=== PATIENT | male | born 1930 | race Caucasian/White ===

== ENCOUNTER 2016-07-10 11:36 | Emergency (ER) | payer MEDICARE, BC ==
[~2016-07-10] VITALS: Ht 170.2 cm; Wt 5.0 kg
[~2016-07-10 11:36] MED LIST: ALPR.25 PO; ASPI1TAB69 PO; FERR325T PO; IV IG; MEST60TA PO; PRED10 PO; RAMI2.5C PO; SYNT112T PO; b12
[2016-07-10 11:45] VITALS: BP 147/75; PULSE 75; RESP 18; TEMP 98.4; O2SAT 95
--- NOTE | 2016-07-10 12:34 | PD ---
HPI Chief Complaint: Cold / Flu Symptoms Time Seen by Provider: 12:00 Travel History International Travel<30 days: No Contact w/Intl Traveler<30days: No Traveled to known affect area: No History of Present Illness HPI Patient is an 85-year-old male who presents emergency department for evaluation of a cough. Patient states cough is an ongoing for approximately 3 days, it is accompanied by nasal congestion, runny nose. He denies any fevers, chills, nausea, vomiting, chest pain, shortness of breath, weakness. Patient reports a history of myasthenia gravis and is concerned that he could have a lung infection. He denies any other complaints at this time. PFSH Past Medical History Hx Anticoagulant Therapy: Yes (81 MG. ASA DAILY) Arthritis: Yes Asthma: No Autoimmune Disease: Yes (myasthenia gravis) Blood Disorders: No Anxiety: Yes Heart Rhythm Problems: No Cancer: No Cardiac Catheterization: Yes High Cholesterol: Yes Chest Pain: Yes Congestive Heart Failure: No COPD: No Cerebrovascular Accident: No Coronary Artery Disease: Yes Diabetes: No Diminished Hearing: No GERD: Yes Genitourinary: Yes Headaches: Yes Hepatitis: No Hiatal Hernia: No Hypertension: Yes Immune Disorder: No Implanted Vascular Access Dvce: Yes Medical other: No Musculoskeletal: Yes Neurologic: Yes (MYASTHENIA GRAVIS ) Psychiatric: Yes Reproductive: No Respiratory: Yes (MYASTHENIA COMPROMISED) Migraines: No Myocardial Infarction: Yes Seizures: No Sleep Apnea: No Thyroid Disease: Yes Past Surgical History Abdominal Surgery: Yes (bilat inguinal hernia repair, APPY) Appendectomy: Yes Body Medical Devices: cardiac stent Cardiac Surgery: Yes (STENT(1)) Cholecystectomy: Yes Coronary Stent: Yes (2000 X1 ) Ear Surgery: No Endocrine Surgery: Yes (PARTIAL THYROIDECTOMY) Eye Surgery: No Genitourinary Surgery: No Gynecologic Surgery: No Joint Replacement: Yes (LEFT KNEE, LEFT SHOULDER) Neurologic Surgery: No Oral Surgery: Yes (T & A, TEETH IMPL.) Thoracic Surgery: No Tonsillectomy: Yes Other Surgery: Yes (partial thyroidectomy) Social History Alcohol Use: Yes (wine daily) Tobacco Use: No (QUIT 55 Y5S AGO. SMOKED CIGS) Substance Use: No Allergies-Medications (Allergen,Severity, Reaction): Coded Allergies: Penicillin (Verified Allergy, Severe, Swelling, 07/10/16) Reported Meds & Prescriptions Reported Meds & Active Scripts Active Reported Ferrous Sulfate 325 Mg Tab 325 Mg PO DAILY [Iv Ig] [b12] Ramipril 2.5 Mg Cap 2.5 Mg PO BID Prednisone 10 Mg Tab 10 Mg PO DAILY Xanax (Alprazolam) 0.25 Mg Tab 0.25 Mg PO BID Mestinon (Pyridostigmine [place]) 60 Mg Tab 90 Mg PO DAILY Aspirin 81 Mg Tabdr 81 Mg PO DAILY Synthroid (Levothyroxine Sodium) 112 Mcg Tab 112 Mcg PO DAILY Review of Systems Except as stated in HPI: all other systems reviewed are Neg HENT: Positive: Congestion Respiratory: Positive: Cough Physical Exam Narrative GENERAL: Well-developed, well-nourished, alert, well-appearing elderly white gentleman. Resting comfortably in no acute distress. at bedside. SKIN: Warm and dry. HEAD: Atraumatic. Normocephalic. EYES: Pupils equal and round. No scleral icterus. No injection or drainage. ENT: No nasal bleeding or discharge. Mucous membranes pink and moist. NECK: Trachea midline. No JVD. CARDIOVASCULAR: Regular rate and rhythm. No murmur appreciated. RESPIRATORY: No accessory muscle use. Clear to auscultation. Breath sounds equal bilaterally. GASTROINTESTINAL: Abdomen soft, non-tender, nondistended. Hepatic and splenic margins not palpable. MUSCULOSKELETAL: No obvious deformities. No clubbing. No cyanosis. No edema. NEUROLOGICAL: Awake and alert. No obvious cranial nerve deficits. Motor grossly within normal limits. Normal speech. PSYCHIATRIC: Appropriate mood and affect; insight and judgment normal. Data Data Last Documented VS Vital Signs Date Time Temp Pulse Resp B/P Pulse Ox O2 Delivery O2 Flow Rate FiO2 07/10/16 11:45 98.4 75 18 147/75 95 Orders Chest, Pa & Lat (07/10/16 ) [facility] Medical Decision Making Medical Screen Exam Complete: Yes Emergency Medical Condition: Yes Interpretation(s) Last Impressions Chest X-Ray 07/10/16 0000 Signed Impressions: Service Date/Time: Sunday, July 10, 2016 13:00 - CONCLUSION: No acute finding is identified. Noe Sparks MD Vital Signs Date Time Temp Pulse Resp B/P Pulse Ox O2 Delivery O2 Flow Rate FiO2 07/10/16 11:45 98.4 75 18 147/75 95 Differential Diagnosis Viral syndrome versus upper respiratory infection versus bronchitis versus pneumonia versus other Narrative Course Patient's a 85-year-old male who presented to emergency for evaluation of a cough. Cough is accompanied by nasal congestion. Symptoms have been ongoing for approximately 3 days. Patient is a history of myasthenia gravis and was concerned about a lung infection. Chest x-ray shows no acute disease. Patient is well oxygenated on room air, he is afebrile and his vital signs are stable. Patient was encouraged to continue with symptomatic management. He is encouraged follow-up with his primary doctor or return to emergency department for any new or worsening symptoms. Please see discharge instructions for further orders. Patient is stable for discharge. Diagnosis Primary Impression: Head cold Referrals: Primary Care Physician Patient Instructions: Cold Symptoms (ED), General Instructions Additional Instructions: Follow-up with your primary doctor Return to emergency department for any new or worsening symptoms trial [id number] nasal saline wash, Nasonex or Flonase use as directed Med/Other Pt SpecificInfo: No Change to Meds Disposition: 01 DISCHARGE HOME Condition: Stable Valentine Mae Jul 10, 2016 12:34
--- NOTE | 2016-07-10 13:25 | RADHPO ---
EXAM DATE/TIME: 07/10/2016 13:00 [facility] COMPARISON: CHEST PA & LAT, February 16, 2014, 17:28. INDICATIONS : Short of breath, cough fever MEDICAL HISTORY : None. SURGICAL HISTORY : None. ENCOUNTER: Initial ACUITY: 2 days PAIN SCORE: 2/10 LOCATION: Bilateral chest FINDINGS: Frontal and lateral views of the chest demonstrate a normal-sized cardiac silhouette with tortuous de scending thoracic aorta. There is chronic elevation of the right hemidiaphragm with atelectasis at th e right base. No effusion, consolidation, or pneumothorax is identified. CONCLUSION: No acute finding is identified. Noe Sparks MD on July 10, 2016 at 13:23 Board Certified Radiologist. This report was verified electronically.
[2016-11-15] MEDS ORDERED: CALC600T64 PO (14:09)
[2016-11-15] MEDS ORDERED: TYLE325T PO (14:09)
[2016-11-15] MEDS ORDERED: DIPH25CA PO (14:09)
[2016-11-15] MEDS ORDERED: VITA100018 PO (14:09)
[2016-11-15] MEDS ORDERED: MEST60TA PO (14:09)
[2016-11-15] MEDS ORDERED: [UNRECOGNIZED DRUG - CODE] IV (14:09)
[2016-11-15] MEDS ORDERED: RAMI2.5C PO (14:09)
[2016-12-06] MEDS ORDERED: ASPI81CH CHEW (11:02)
[2016-12-06] MEDS ORDERED: FERR200T PO (11:06)
[2016-12-06] MEDS ORDERED: CYAN1000P SQ (11:23)
== END 2016-07-10 13:56 | disposition home or self-care (01) ==
LOC: PHEFT 11:36
DX: J00 Acute nasopharyngitis [common cold] (principal); G70.00 Myasthenia gravis without (acute) exacerbation; E78.00 Pure hypercholesterolemia, unspecified; I25.10 Atherosclerotic heart disease of native coronary artery without angina pectoris; I10 Essential (primary) hypertension; E07.9 Disorder of thyroid, unspecified; Z79.82 Long term (current) use of aspirin; Z87.39 Personal history of other diseases of the musculoskeletal system and connective tissue; Z86.59 Personal history of other mental and behavioral disorders; Z87.19 Personal history of other diseases of the digestive system; Z87.448 Personal history of other diseases of urinary system; Z87.891 Personal history of nicotine dependence
CPT/HCPCS: 71020; 99283

== ENCOUNTER → 2016-08-25 | Outpatient (CLI) | payer MEDICARE, BC ==
[~2016-08-25] MED LIST changes: +ASPI81CH CHEW; +CALC600T64 PO; +CYAN1000P SQ; +DIPH25CA PO; +FERR200T PO; +TYLE325T PO; +VITA100018 PO; +[UNRECOGNIZED DRUG - CODE] IV
[2016-08-25 10:01] LABS: FREE T4 1.21 NG/DL (0.76-1.46); POTASSIUM 4.8 MEQ/L (3.5-5.1)
== END ==
LOC: PLAB 07:39
PROVIDERS: ATTEND Family Medicine
DX: E03.9 Hypothyroidism, unspecified (principal); I12.9 Hypertensive chronic kidney disease with stage 1 through stage 4 chronic kidney disease, or unspecified chronic kidney disease; N18.2 Chronic kidney disease, stage 2 (mild)
CPT/HCPCS: 36415; 80048; 84439; 84443

== ENCOUNTER → 2017-02-23 | Outpatient (CLI) | payer MEDICARE, BC ==
[~2017-02-23] MED LIST changes: -ASPI1TAB69 PO; -FERR325T PO; -IV IG; -b12
[2017-02-23 13:30] LABS: AUTOMATED NEUTROPHIL # 3.1 TH/MM3 (1.8-7.7); BASOPHIL % 0.7 % (0.0-2.0); EOSINOPHIL # 0.1 TH/MM3 (0-0.4); HEMATOCRIT 38.5 % (39.0-51.0); HEMO FLAGS DIFF FINAL; LYMPH % 29.4 % (9.0-44.0); LYMPHOCYTE # 1.6 TH/MM3 (1.0-4.8); MEAN CELL VOLUME 96.9 FL (80.0-100.0); MEAN CORPUSCULAR HEMOGLOBIN 32.4 PG (27.0-34.0); MEAN CORPUSCULAR HGB CONC 33.4 % (32.0-36.0); MONO % 10.4 % (0.0-8.0); NEUT % 57.5 % (16.0-70.0); PLATELET COUNT 145 TH/MM3 (150-450); RED BLOOD COUNT 3.97 MIL/MM3 (4.50-5.90); RED CELL DISTRIBUTION WIDTH 14.9 % (11.6-17.2); WHITE BLOOD COUNT 5.3 TH/MM3 (4.0-11.0)
[2017-02-23 13:45] LABS: ALT (GPT) 31 U/L (12-78); ANION GAP 4 MEQ/L (5-15); AST (GOT) 30 U/L (15-37); BICARBONATE 29.7 MEQ/L (21.0-32.0); BLOOD UREA NITROGEN 16 MG/DL (7-18); CHLORIDE 101 MEQ/L (98-107); GLOMERULAR FILTRATION RATE 80 ML/MIN (>89); GLUCOSE,FASTING 99 MG/DL (74-99); POTASSIUM 3.9 MEQ/L (3.5-5.1); SODIUM (NA) 135 MEQ/L (136-145)
[2017-02-23 14:12] LABS: ALKALINE PHOSPHATASE 87 U/L (45-117); FREE T4 1.17 NG/DL (0.76-1.46); TOTAL BILIRUBIN ADULT 0.4 MG/DL (0.2-1.0)
== END ==
LOC: PLAB 08:56
PROVIDERS: ATTEND Family Medicine
DX: E03.9 Hypothyroidism, unspecified (principal); I12.9 Hypertensive chronic kidney disease with stage 1 through stage 4 chronic kidney disease, or unspecified chronic kidney disease; N18.2 Chronic kidney disease, stage 2 (mild); E53.8 Deficiency of other specified B group vitamins
CPT/HCPCS: 36415; 80053; 82607; 84439; 84443; 85025

== ENCOUNTER → 2017-05-25 | Outpatient (CLI) | payer MEDICARE, BC ==
[~2017-05-25] MED LIST changes: +ASPI-516 CHEW; -ASPI81CH CHEW
[2017-05-25 11:58] LABS: BICARBONATE 29.9 MEQ/L (21.0-32.0); POTASSIUM 4.5 MEQ/L (3.5-5.1)
[2017-05-25 12:01] LABS: AUTOMATED NEUTROPHIL # 3.1 TH/MM3 (1.8-7.7); BASOPHIL % 0.6 % (0.0-2.0); EOSINOPHIL # 0.1 TH/MM3 (0-0.4); EOSINOPHIL % 1.4 % (0.0-4.0); HDL CHOLESTEROL 78.6 MG/DL (40.0-60.0); HEMO FLAGS DIFF FINAL; LYMPH % 25.1 % (9.0-44.0); LYMPHOCYTE # 1.2 TH/MM3 (1.0-4.8); MEAN CELL VOLUME 95.4 FL (80.0-100.0); MEAN CORPUSCULAR HEMOGLOBIN 32.7 PG (27.0-34.0); MEAN CORPUSCULAR HGB CONC 34.3 % (32.0-36.0); MONO % 8.9 % (0.0-8.0); PLATELET COUNT 148 TH/MM3 (150-450); RED BLOOD COUNT 3.88 MIL/MM3 (4.50-5.90); RED CELL DISTRIBUTION WIDTH 14.5 % (11.6-17.2); WHITE BLOOD COUNT 4.9 TH/MM3 (4.0-11.0)
[2017-05-25 12:25] LABS: FREE T4 1.05 NG/DL (0.76-1.46)
== END ==
LOC: PLAB 09:43
PROVIDERS: ATTEND Internal Medicine Interventional Cardiology
DX: E78.00 Pure hypercholesterolemia, unspecified (principal); I25.118 Atherosclerotic heart disease of native coronary artery with other forms of angina pectoris; I25.9 Chronic ischemic heart disease, unspecified; D64.9 Anemia, unspecified; I10 Essential (primary) hypertension; E03.9 Hypothyroidism, unspecified; E53.8 Deficiency of other specified B group vitamins
CPT/HCPCS: 36415; 80048; 80061; 82607; 82746; 84439; 84443; 84450; 84460; 85025

== ENCOUNTER 2017-06-29 15:35 | Emergency (ER) | payer MEDICARE, BC | END 2017-06-29 15:49 | disposition left against medical advice (07) | LOC: PHED 15:35 | DX: S01.81XA Laceration without foreign body of other part of head, initial encounter (principal); X58.XXXA Exposure to other specified factors, initial encounter | CPT/HCPCS: 99281 ==

== ENCOUNTER 2017-06-29 16:09 | Emergency (ER) | payer MEDICARE, BC, OTHER ==
[~2017-06-29] VITALS: Ht 170.2 cm; Wt 72.5 kg
[2017-06-29 16:10] VITALS: BP 154/74; PULSE 73; RESP 18; TEMP 98.8; O2SAT 95
--- NOTE | 2017-06-29 17:31 | RADRPT ---
EXAM DATE/TIME: 06/29/2017 17:21 [facility] COMPARISON: No previous studies available for comparison. INDICATIONS : Head pain due to fall. RADIATION DOSE: 34.25 CTDIvol (mGy) MEDICAL HISTORY : Hypertension. Myasthenia grauis. SURGICAL HISTORY : Partial thyroidectomy. ENCOUNTER: Initial ACUITY: 1 day PAIN SCALE: 6/10 LOCATION: Bilateral cranial TECHNIQUE: Multiple contiguous axial images were obtained of the head. Using automated exposure control and adj ustment of the mA and/or kV according to patient size, radiation dose was kept as low as reasonably a chievable to obtain optimal diagnostic quality images. DICOM format image data is available electro nically for review and comparison. FINDINGS: CEREBRUM: The ventricles are normal for age. No evidence of midline shift, mass lesion, hemorrhage or acute in farction. No extra-axial fluid collections are seen. POSTERIOR FOSSA: The cerebellum and brainstem are intact. The 4th ventricle is midline. The cerebellopontine angle i s unremarkable. EXTRACRANIAL: The visualized portion of the orbits is intact. SKULL: The calvaria is intact. No evidence of skull fracture. CONCLUSION: Negative noncontrast head CT Chano Reed MD on June 29, 2017 at 17:28 Board Certified Radiologist. This report was verified electronically.
--- NOTE | 2017-06-29 17:49 | RADRPT ---
EXAM DATE/TIME: 06/29/2017 17:21 [facility] COMPARISON: No previous studies available for comparison. INDICATIONS : Neck pain due to fall. RADIATION DOSE: 20.70 CTDIvol (mGy) MEDICAL HISTORY : Cardiovascular disease. Hypertension. Myasthenia gravis. SURGICAL HISTORY : Partial thyroidectomy. ENCOUNTER: Initial ACUITY: 1 day PAIN SCALE: 5/10 LOCATION: Bilateral neck region. TECHNIQUE: Volumetric scanning of the cervical spine was performed. Multiplanar reconstructions in the sagittal, coronal and oblique axial planes were performed. Using automated exposure control and adjustment o f the mA and/or kV according to patient size, radiation dose was kept as low as reasonably achievable to obtain optimal diagnostic quality images. DICOM format image data is available electronically f or review and comparison. FINDINGS: Vertebral body heights are maintained. Osseous structures are intact without evidence for acute bony fracture. Dens is intact. There is 3 mm anterolisthesis of C7 on T1. There is a normal C1-2 relations hip. Facets are normally aligned. There is no significant prevertebral soft tissue hematoma. 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 No significant cervical adenopathy or gross mass. The thyroid appears unremarkable. Visualized lung apices are clear without pneumothorax. CONCLUSION: 1. 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 2. 3 mm anterolisthesis of C7 on T1, likely degenerative in etiology. Flexion and extension views may be obtained if there is significant clinical concern regarding ligamentous instability. 3. No acute fracture. Miky Paez MD on June 29, 2017 at 17:40 Board Certified Radiologist. This report was verified electronically.
[2017-06-29] MEDS ORDERED: ACETAMINOPHEN 325 MG TAB PO ONE (18:15)
--- NOTE | 2017-06-29 18:18 | PD ---
HPI Chief Complaint: Fall Time Seen by Provider: 18:00 Travel History International Travel<30 days: No Contact w/Intl Traveler<30days: No Traveled to known affect area: No History of Present Illness HPI 86-year-old male with history of myasthenia gravis here with his for evaluation after mechanical trip and fall. The patient reports that around 3: 00 PM he tripped and fell in his garage, falling forward. He did not lose consciousness. He sustained a wound to his left forehead, left upper extremity , left hand, bilateral knees. applied a sterile nonadherent dressing to the wound to his left arm. Patient is complaining of a slight headache. He is denying any other symptoms. No neck or back pain. No upper or lower extremity pain. No paresthesias or motor deficits. No visual disturbances. He takes 81 mg of aspirin daily, no other antiplatelets or anticoagulants. CT of the head and neck were ordered and performed while the patient was waiting in triage. States that his last tetanus was 5 years ago. PFSH Past Medical History Hx Anticoagulant Therapy: Yes (81 MG. ASA DAILY) Arthritis: Yes Asthma: No Autoimmune Disease: Yes (myasthenia gravis) Blood Disorders: No Anxiety: Yes Heart Rhythm Problems: No Cancer: No Cardiac Catheterization: Yes Cardiovascular Problems: Yes High Cholesterol: Yes Chest Pain: Yes Congestive Heart Failure: No COPD: No Cerebrovascular Accident: No Coronary Artery Disease: Yes Diabetes: No Diminished Hearing: No Endocrine: Yes GERD: Yes Genitourinary: No Headaches: Yes Hepatitis: No Hiatal Hernia: No Hypertension: Yes Immune Disorder: No Implanted Vascular Access Dvce: Yes Musculoskeletal: Yes Neurologic: Yes (MYASTHENIA GRAVIS ) Psychiatric: Yes Reproductive: No Respiratory: Yes (MYASTHENIA COMPROMISED) Migraines: No Myocardial Infarction: Yes Seizures: No Sleep Apnea: No Thyroid Disease: Yes Past Surgical History Abdominal Surgery: Yes (bilat inguinal hernia repair, APPY) Appendectomy: Yes Body Medical Devices: cardiac stent Cardiac Surgery: Yes (STENT(1)) Cholecystectomy: Yes Coronary Stent: Yes (2000 X1 ) Ear Surgery: No Endocrine Surgery: Yes (PARTIAL THYROIDECTOMY) Eye Surgery: No Genitourinary Surgery: No Gynecologic Surgery: No Joint Replacement: Yes (LEFT KNEE, LEFT SHOULDER) Neurologic Surgery: No Oral Surgery: Yes (T & A, TEETH IMPL.) Thoracic Surgery: No Tonsillectomy: Yes Other Surgery: Yes (partial thyroidectomy) Social History Alcohol Use: Yes (wine daily) Tobacco Use: No (QUIT 55 Y5S AGO. SMOKED CIGS) Substance Use: No Allergies-Medications (Allergen,Severity, Reaction): Coded Allergies: penicillin G (Verified Allergy, Severe, Swelling, 06/16/17) Reported Meds & Prescriptions Reported Meds & Active Scripts Active Reported Cyanocobalamin Inj (Cyanocobalamin) 1,000 Mcg/Ml Inj 1,000 Mcg SQ [id number] Feosol (Ferrous Sulfate) 200 Mg Tab 325 Mg PO DAILY Aspirin 81 Mg Chew 81 Mg CHEW DAILY Vitamin D3 (Cholecalciferol) 1,000 Unit Tab 1,000 Units PO DAILY Calcium 600 + Vit D Tablet (Calcium Carbonate/Vitamin D3) 1 Each Tablet 1 Tab PO DAILY Ramipril 2.5 Mg Cap 2.5 Mg PO BID Mestinon (Pyridostigmine [place]) 60 Mg Tab 60 Mg PO QID Privigen Inj (Immune Globulin) 20 Gm/200 Ml Inj 35 Gm IV [id number] Diphenhydramine (Diphenhydramine HCl) 25 Mg Cap 25 Mg PO ONCE PRN Tylenol (Acetaminophen) 325 Mg Tab 650 Mg PO ONCE PRN Prednisone 10 Mg Tab 10 Mg PO DAILY Xanax (Alprazolam) 0.25 Mg Tab 0.25 Mg PO BID Synthroid (Levothyroxine Sodium) 112 Mcg Tab 112 Mcg PO DAILY Review of Systems Except as stated in HPI: all other systems reviewed are Neg Physical Exam Narrative GENERAL: Pleasant, well-developed, well-nourished, awake, alert, GCS 15, no apparent distress. SKIN: Ecchymosis in various stages of healing to bilateral upper and lower extremities. Fresh superficial skin tears to left arm and forearm, left hand, bilateral anterior knees, and left forehead. There are no lacerations. HEAD: Skin tear with underlying hematoma to left anterior forehead. Normocephalic. EYES: Pupils equal, round, 2 mm, reactive to light. EOMI. No scleral icterus. No injection or drainage. ENT: No nasal bleeding or discharge. Mucous membranes pink and moist. NECK: Trachea midline. No JVD. No midline cervical spine step-off or tenderness. CARDIOVASCULAR: Regular rate and rhythm. Bilateral distal radial pulses are brisk and equal. RESPIRATORY: No accessory muscle use. Clear to auscultation. Breath sounds equal bilaterally. MUSCULOSKELETAL: Skin exam as above. No obvious deformities. Normal range of motion in all joints and extremities without obvious bony deformities. No midline vertebral step-off or tenderness. NEUROLOGICAL: Awake and alert. No obvious cranial nerve deficits. Motor grossly within normal limits. Normal speech. PSYCHIATRIC: Appropriate mood and affect; insight and judgment normal. Data Data Last Documented VS Vital Signs Date Time Temp Pulse Resp B/P (MAP) Pulse Ox O2 Delivery O2 Flow Rate FiO2 06/29/17 16:10 98.8 73 18 154/74 (100) 95 Room Air Orders Orders Ct Brain W/O Iv Contrast(Rout) (06/29/17 ) Ct Cerv Spine W/O Contrast (06/29/17 ) [facility] Medical Decision Making Medical Screen Exam Complete: Yes Emergency Medical Condition: Yes Differential Diagnosis Mechanical fall, intracranial trauma, closed head injury, skin abrasions, cervical spine injury Narrative Course Vital signs reviewed. CT head: Negative noncontrast CT head. CT cervical spine: CONCLUSION: 1. 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 2. 3 mm anterolisthesis of C7 on T1, likely degenerative in etiology. Flexion and extension views may be obtained if there is significant clinical concern regarding ligamentous instability. 3. No acute fracture. The patient is overall very well-appearing. He has no neck pain or tenderness. Skin wounds were irrigated and sterile dressing with bacitracin ointment were applied by my prosthetics technician. Patient and the patient's were made aware of CT findings. He is stable for discharge home with outpatient follow-up with his primary care physician this week. He was advised on when to return to the emergency department. He verbalizes understanding and agreement with plan. Diagnosis Primary Impression: Closed head injury Qualified Codes: S09.90XA - Unspecified injury of head, initial encounter Additional Impressions: Multiple skin tears Ecchymosis Referrals: Primary Care Physician 3 days Additional Instructions: Follow-up with your primary care physician this week. Return to the emergency department for worsening symptoms or any other concerns as discussed. Disposition: 01 DISCHARGE HOME Condition: Stable Stefano Wright MD Jun 29, 2017 18:18
== END 2017-06-29 19:12 | disposition home or self-care (01) ==
LOC: NEPD 16:09
DX: S09.90XA Unspecified injury of head, initial encounter (principal); W01.0XXA Fall on same level from slipping, tripping and stumbling without subsequent striking against object, initial encounter; Y92.008 Other place in unspecified non-institutional (private) residence as the place of occurrence of the external cause; G70.00 Myasthenia gravis without (acute) exacerbation; I10 Essential (primary) hypertension; I25.10 Atherosclerotic heart disease of native coronary artery without angina pectoris; E07.9 Disorder of thyroid, unspecified; K21.9 Gastro-esophageal reflux disease without esophagitis; Z87.891 Personal history of nicotine dependence
CPT/HCPCS: 70450; 72125

== ENCOUNTER → 2017-09-28 | Outpatient (CLI) | payer MEDICARE, BC ==
[~2017-09-28] MED LIST changes: +CYAN1TAB24 PO
[2017-09-28 14:40] LABS: FOLATE 16.8 NG/ML (3.1-17.5)
== END ==
LOC: PLAB 11:30
PROVIDERS: ATTEND Family Medicine
DX: E53.8 Deficiency of other specified B group vitamins (principal)
CPT/HCPCS: 36415; 82607; 82746

== ENCOUNTER → 2017-11-23 | Outpatient (CLI) | payer MEDICARE, BC ==
[2017-11-23 14:14] LABS: BICARBONATE 28.1 MEQ/L (21.0-32.0); CALCIUM 8.8 MG/DL (8.5-10.1); CREATININE 0.94 MG/DL (0.60-1.30)
[2017-11-23 14:32] LABS: AUTOMATED NEUTROPHIL # 2.6 TH/MM3 (1.8-7.7); BASOPHIL % 0.9 % (0.0-2.0); EOSINOPHIL # 0.1 TH/MM3 (0-0.4); EOSINOPHIL % 2.2 % (0.0-4.0); HEMOGLOBIN 12.8 GM/DL (13.0-17.0); LYMPH % 24.4 % (9.0-44.0); MEAN CELL VOLUME 94.5 FL (80.0-100.0); MEAN CORPUSCULAR HEMOGLOBIN 31.7 PG (27.0-34.0); MEAN CORPUSCULAR HGB CONC 33.6 % (32.0-36.0); MEAN PLATELET VOLUME 8.6 FL (7.0-11.0); MONOCYTE # 0.5 TH/MM3 (0-0.9); NEUT % 60.5 % (16.0-70.0); PLATELET COUNT 144 TH/MM3 (150-450); RED BLOOD COUNT 4.02 MIL/MM3 (4.50-5.90); RED CELL DISTRIBUTION WIDTH 14.4 % (11.6-17.2); WHITE BLOOD COUNT 4.3 TH/MM3 (4.0-11.0)
[2017-11-23 14:49] LABS: FOLATE 13.9 NG/ML (3.1-17.5); FREE T4 1.23 NG/DL (0.76-1.46)
== END ==
LOC: PLAB 09:52
PROVIDERS: ATTEND Family Medicine
DX: E03.9 Hypothyroidism, unspecified (principal); E53.8 Deficiency of other specified B group vitamins; I12.9 Hypertensive chronic kidney disease with stage 1 through stage 4 chronic kidney disease, or unspecified chronic kidney disease; N18.2 Chronic kidney disease, stage 2 (mild); D63.1 Anemia in chronic kidney disease
CPT/HCPCS: 36415; 80048; 82607; 82746; 84439; 84443; 85025